=== PATIENT | female | born 1955 | race Two or more races ===

== ENCOUNTER → 2020-09-19 | Outpatient (CLI) | payer OTHER ==
[~2020-09-19] VITALS: Ht 165.1 cm; Wt 62.6 kg
[~2020-09-19] MED LIST: ALBUAER3 IN; ALPR0.5T7 PO; ATOR20TA50 PO; BUPIVACAINE 0.25% INJ 50ML VIAL ONE; ESCI20TA51 PO; FURO40TA4 PO; HYDROmorphone HCL 2 MG/ML VL IV PRN; LIDOCAINE 1% HCL (LOCAL ANESTH.) INJ 20ML MDV ONE; LISI2.5T47 PO; METH5T PO; MORPHINE SULFATE 4 MG/ML SYR/VIAL IV PRN; ONDANSETRON HCL 4 MG/2 ML VIAL IV PRN; POTA-220 PO; PRAM0.12 PO; RIVA2.5T PO; TRAZ100T3 PO; VANCOMYCIN HCL 1000 MG VL ONE
== END | disposition home or self-care (01) ==
LOC: LAB 10:53 → SUR 09-25 08:03 → EDSTATUS 09-25 09:00
PROVIDERS: ATTEND Orthopaedic Surgery Adult Reconstructive Orthopaedic Surgery
DX: S82.101D Unspecified fracture of upper end of right tibia, subsequent encounter for closed fracture with routine healing (principal); Z79.899 Other long term (current) drug therapy; Z20.828 Contact with and (suspected) exposure to other viral communicable diseases; Z53.8 Procedure and treatment not carried out for other reasons; X58.XXXD Exposure to other specified factors, subsequent encounter
CPT/HCPCS: J2001; J3490